=== PATIENT | female | born 1970 | race Caucasian/White ===

== ENCOUNTER 2018-06-17 11:47 | Emergency (ER) | payer OTHER ==
[~2018-06-17] VITALS: Ht 170.2 cm; Wt 77.1 kg
--- NOTE | 2018-06-17 12:46 | CT SCAN REPORT ---
EXAMINATION: CT HEAD AND CERVICAL SPINE. CLINICAL INFORMATION: Trauma. Neck pain after fall. COMPARISON: CT head 12/18/2013. TECHNIQUE: Chief Human Resources Officer images were obtained. CT acquisition of the head and cervical spine was performed without contrast. Data was reformatted into multiplanar images at the acquisition workstation. DLP: 891.27 mGy-cm. FINDINGS: Head: There is no acute intracranial hemorrhage or abnormal extra-axial collection. No intracranial mass effect or midline shift. Lateral and third ventricles are proportionate to the subarachnoid spaces. No hydrocephalus. Evans-white matter differentiation is grossly preserved and there is no evidence of acute territorial infarct. The calvarium and skull base are intact. Mastoid air cells and middle ear cavities are well aerated. Visualized paranasal sinuses are well aerated. Cervical spine: Alignment is normal. Vertebral heights are preserved. There is no acute fracture. No abnormal prevertebral soft tissue swelling. There is slight loss of intervertebral disc height with associated sclerotic degenerative endplate changes and disc osteophyte spurring at C5-C6. Mild degenerative arthrosis at the atlantodental joint is also noted. Grossly no evidence of canal compromise. No bony neuroforaminal encroachment. Visualized soft tissues of the neck including the thyroid gland are unremarkable. Visualized lung apices are clear. IMPRESSION: Unremarkable CT scan of the head and cervical spinal. No acute intracranial hemorrhage. No acute cervical spine fracture.
[2018-06-17 13:33] VITALS: BP 120/68
--- NOTE | 2018-06-17 13:38 | ED GENERAL ADULT ---
History of Present Illness General Chief Complaint: Facial or Head Injury Stated Complaint: FALL OFF LADDER SATURDAY/HEAD INJURY Source: patient Exam Limitations: no limitations Vital Signs & Intake/Output Vital Signs & Intake/Output Vital Signs Date Time Temp Pulse Resp B/P B/P Pulse O2 O2 Flow FiO2 Mean Ox Delivery Rate 06/17 1333 98.4 73 18 120/68 95 Room Air 06/17 1152 97.6 80 20 125/82 98 Room Air Allergies Coded Allergies: shellfish derived (HIVES 06/17/18) sulfamethoxazole (From BACTRIM) (HIVES 06/17/18) trimethoprim (From BACTRIM) (HIVES 06/17/18) Uncoded Allergies: SEAFOOD (HIVES 06/17/18) Triage Note: PT TO ED C/O "PAIN ALL OVER" S/P FALLING OFF A LADDER ON SATURDAY. PT FELL OFF STEP LADDER LANDING ON BACK. UNSURE IF LOC. DENIES BEING ON BLOOD THINNERS. STATES SHE VOMITED 4-5 TIMES THIS AM. Triage Nurses Notes Reviewed? yes HPI: This is a 47-year-old female history of depression, migraines, ADHD presenting to the emergency department with nausea and vomiting in the setting of recent head injury. Patient states she was on a 2 foot ladder and fell backwards mechanically, striking the back of her head on the floor with unclear loss of consciousness. Today at work, she felt nauseated and vomited. She denies any headache, dizziness, difficulty speaking or thinking. She states that her vision is a little bit blurry when she is not wearing her glasses, but otherwise normal. She does not take anticoagulation and there have been no other recent injuries. She states she fell because she is "clumsy". Past History Travel History Traveled to [place] past 21 day No Medical History Any Pertinent Medical History? see below for history Neurological: migraine Psychiatric: depression, adhd Surgical History Surgical History: none Psychosocial History What is your primary language Irish Tobacco Use: Quit >30 days ago ETOH Use: denies use Illicit Drug Use: denies illicit drug use Family History Hx Contributory? No Review of Systems Review of Systems Constitutional: Reports: no symptoms. EENTM: Reports: see HPI. GI: Reports: nausea, vomiting. Physical Exam Physical Exam General Appearance: well developed/nourished, no apparent distress, alert, awake , comfortable Comments: Well-appearing middle-aged female, no acute distress. No midline C-spine tenderness. HEENT exam unremarkable. No posterior scalp tenderness or skin changes or swelling. Neurologically intact and normal. Cardia point exam within normal limits. Abdominal exam benign. Muscular skeletal exam benign. Intact pulse movement sensation in all extremities. Normal gait and tandem gait. No objective changes in vision. Extraocular was intact. Visual weinberg intact Core Measures ACS in differential dx? No CVA/TIA Diagnosis: No Sepsis Present: No Sepsis Focused Exam Completed? No Progress Differential Diagnoses I considered the following diagnoses in my evaluation of the patient: Clinically suspect concussion is patient based on exam, history, and presentation. Mild concern for ICH, spinal injury. Low suspicion for metabolic arrangement or primary arrhythmia. Low suspicion also for CVA or TIA. Plan of Care: Plan for CT head and C-spine, reassessment, likely discharge home with follow-up instructions and return precautions. Initial ED EKG: none Departure Departure Time of Disposition: 1343 Disposition: HOME OR SELF CARE Condition: Stable Clinical Impression Primary Impression: Concussion Referrals: Irma ROJAS,Chadd (PCP/Family) Additional Instructions: Thank you for coming to [facility] today. As we discussed, it is important that you rest and fully recover from your head injury. We did not see any blood on your CAT scan but if you have any the symptoms that we talked about , please return to the emergency department immediately. These symptoms include worsening headache, dizziness, confusion, trouble with speech or thinking, or severe nausea and vomiting. Departure Forms: Customer Survey General Discharge Information Critical Care Note Critical Care Note Critical Care Time: non-applicable
== END 2018-06-17 13:56 ==
LOC: ERH 11:47
DX: S06.0X0A Concussion without loss of consciousness, initial encounter (principal); W11.XXXA Fall on and from ladder, initial encounter; Y92.9 Unspecified place or not applicable; Y93.9 Activity, unspecified